=== PATIENT | female | born 1980 | race Caucasian/White ===

== ENCOUNTER 2017-12-23 14:49 | Outpatient (REF) | payer OTHER, SELFPAY ==
--- NOTE | 2017-12-23 13:45 | PAPFT_PTH ---
PATIENT: Cailin Antoine LOC: [facility] U#:[id number] AGE/SX: 37/F ROOM: RE12/23/[address]: SONAM Aiken : 1980 BED: DIS: 12/23/2017 SPEC #: [id number] RECD: 12/23/17 18:23 STATUS: LEANNE REQ #: [id number] CATHRYN: 12/23/17 13:[address]: Margarita Gant DEPT: [facility] Cytology RECD BY: Tamiko Perez ENTERED: 12/23/17 18:23 SP TYPE: PAPFT MARCELINO DR: Ulisses Haile MD Tissues: 1 - CX/ENDOCX FOR PAP SMEARS Procedures: PAP THIN PREP/[facility] Screening HPV DNA PROBE Comments: [id number]
== END 2017-12-23 15:09 ==
LOC: LBN 14:49
PROVIDERS: PCP Family Medicine; Visit Provider Nurse Practitioner Family
DX: Z12.4 Encounter for screening for malignant neoplasm of cervix (principal); Z11.51 Encounter for screening for human papillomavirus (HPV)
CPT/HCPCS: 88142; 87624

== ENCOUNTER 2018-01-18 02:16 | Outpatient (CLI) | payer OTHER, SELFPAY ==
[2018-01-18 12:37] LABS: HCT 42.2 % (36.0-46.0); HGB 13.8 g/dL (12.0-15.5); Mean Corp. HGB Concentration 32.7 g/dL (32.0-36.0); Mean Corpuscular Hemoglobin 27.7 pg (27.0-33.0); Mean Corpuscular Volume 84.6 fL (80-95); Mean Platelet Volume 9.7 fL (8.0-11.0); Platelet Count 259 x1000/uL (130-400); RBC 4.99 m/cumm (4.00-5.20); White Blood Cell Count 4.69 k/cumm (4.4-10.8)
[2018-01-18 13:20] LABS: ALT 23 U/L (12-78); AST 21 U/L (15-37); Albumin 4.1 g/dL (3.4-5.0); Alkaline Phosphatase 46 U/L (46-116); Anion Gap 10.5 mmol/L (3-11); BUN 14 mg/dL (7-18); Bilirubin, Total 0.8 mg/dL (0.2-1.0); CO2 25.5 mmol/L (21.0-32.0); CREATININE 0.94 mg/dL (0.55-1.02); Chloride 103 mmol/L (98-107); Cholesterol 194 mg/dL (50-200); Glucose 96 mg/dL (70-100); HDL Cholesterol 96 mg/dL (40-60); LDL CHOLESTEROL 84 mg/dL (<100); Potassium 4.3 mmol/L (3.5-5.1); Sodium 139 mmol/L (136-145); TSH 2.57 uIU/mL (0.358-3.74); Total Protein 6.8 g/dL (6.4-8.2); Triglyceride 71 mg/dL (30-150)
== END 2018-01-18 02:36 ==
PROVIDERS: PCP Family Medicine; Visit Provider Family Medicine
DX: R00.2 Palpitations (principal); Z13.220 Encounter for screening for lipoid disorders
CPT/HCPCS: 80053; 80061; 83721; 85027; 84443

== ENCOUNTER 2018-04-05 00:47 | Outpatient (CLI) | payer OTHER, SELFPAY ==
--- NOTE | 2018-04-05 09:11 | DI.US_ITS ---
SYMPTOMS/DIAGNOSIS: PERIUMBILICAL PAIN, R10.33, ? UMBILICAL HERNIA ABDOMINAL ULTRASOUND: Sonographic evaluation of the periumbilical region was performed. No sonographic evidence of a periumbilical or umbilical hernia is noted. If there is continued concern, a CT scan may be considered for further evaluation. IMPRESSION: Negative ultrasound. No findings to suggest an umbilical hernia sonographically.
== END 2018-04-05 01:07 ==
PROVIDERS: PCP Family Medicine; Visit Provider Physical Therapy Assistant
DX: R10.33 Periumbilical pain (principal)
CPT/HCPCS: 76857

== ENCOUNTER 2018-05-02 09:01 | Outpatient (CLI) | payer OTHER, SELFPAY ==
[2018-05-02 11:11] LABS: Abs Immature Grans 0.01 k/cumm (0.0-0.09); Absolute Basophil Count 0.12 k/cumm (0.0-0.2); Absolute Eosinophil Count 0.32 k/cumm (0.0-0.7); Absolute Lymphocyte Count 1.79 k/cumm (1.2-3.4); Absolute Neutrophil Count 2.32 k/cumm (1.2-6.7); Basophils % 2.4; Eosinophils % 6.5; HCT 45.3 % (36.0-46.0); HGB 14.7 g/dL (12.0-15.5); Immature Grans % 0.2; Lymphocytes % 36.1; Mean Corp. HGB Concentration 32.5 g/dL (32.0-36.0); Mean Corpuscular Hemoglobin 27.5 pg (27.0-33.0); Mean Corpuscular Volume 84.8 fL (80-95); Mean Platelet Volume 10.3 fL (8.0-11.0); Monocytes % 8.1; Neutrophils % 46.7; Platelet Count 288 x1000/uL (130-400); RBC 5.34 m/cumm (4.00-5.20); RBC Distribution Width 13.1 % (11.7-14.6); White Blood Cell Count 4.96 k/cumm (4.4-10.8)
[2018-05-02 11:43] LABS: ALT 20 U/L (12-78); AST 19 U/L (15-37); Albumin 4.4 g/dL (3.4-5.0); Alkaline Phosphatase 52 U/L (46-116); Anion Gap 9.3 mmol/L (3-11); BUN 15 mg/dL (7-18); Bilirubin, Total 0.8 mg/dL (0.2-1.0); CO2 30.7 mmol/L (21.0-32.0); CREATININE 0.89 mg/dL (0.55-1.02); Calcium 9.5 mg/dL (8.5-10.1); Chloride 103 mmol/L (98-107); Glucose 87 mg/dL (70-100); Potassium 4.2 mmol/L (3.5-5.1); Sodium 143 mmol/L (136-145); Total Protein 7.4 g/dL (6.4-8.2)
[2018-05-02 12:04] LABS: Bilirubin Negative (Negative); Blood Negative (Negative); Clarity Clear; Glucose Negative (Negative); Ketones Negative (Negative); Leukocyte Esterase Trace (Negative); Nitrite Negative (Negative); Urobilinogen 0.2 EU/dL (Up TO 0.2)
[2018-05-02 12:23] LABS: Bacteria Rare HPF (Negative); C & S Indicated? No/Sq. Contamination; Casts Negative LPF (Negative); Crystals Negative HPF (Negative); Epithelial Cells Moderate HPF (Negative); Mucus Trace (Negative); RBC 0-2 (0-2)
== END 2018-05-02 09:21 ==
PROVIDERS: PCP Family Medicine; Visit Provider Family Medicine
DX: Z00.00 Encounter for general adult medical examination without abnormal findings (principal); R10.9 Unspecified abdominal pain; R14.2 Eructation; R39.11 Hesitancy of micturition
CPT/HCPCS: 36415; 80053; 81003; 81015; 85025

== ENCOUNTER 2018-05-16 01:30 | Outpatient (CLI) | payer OTHER, SELFPAY ==
--- NOTE | 2018-05-16 08:30 | DI.US_ITS ---
SYMPTOM/DIAGNOSIS: ABD PAIN, BELCHING, R10.9,R14.2 ABDOMEN ULTRASOUND: The aorta is unremarkable. The inferior vena cava is somewhat prominent measuring up to approximately 3.2 cm. in diameter. The liver is normal. The gallbladder is normal. There are no stones or ductal dilatation. The pancreas is normal. The kidneys are unremarkable. The right kidney measures 11.2 and the left kidney, 10.9 cm. There is no evidence of free fluid in the abdomen. SUMMARY: The examination is within normal limits.
== END 2018-05-16 01:50 ==
PROVIDERS: PCP Family Medicine; Visit Provider Family Medicine
DX: R10.9 Unspecified abdominal pain (principal); R14.2 Eructation
CPT/HCPCS: 76700

== ENCOUNTER 2018-12-14 01:44 | Outpatient (CLI) | payer OTHER, SELFPAY ==
--- NOTE | 2018-12-14 13:45 | DI.US_ITS ---
EXAM: US PELVIS AND TRANSVAGINAL CLINICAL HISTORY: Enlarged uterus 12-14 week size, Hx Fibroid N85.2 HYPERTROPHY OF UTERUS TECHNIQUE: Ultrasound performed using standard protocol. Transabdominal and transvaginal exams wer e performed. COMPARISON: PELVIS AND TRANSVAG from 12/15/2015 FINDINGS: The uterus measures 8.9 x 5.8 x 6.4 cm. Uterus is again noted to be retroverted. There is a fibroid near the fundus measuring 2.7 cm in greatest dimension, not significantly changed from the previous e xam. The endometrial stripe measures 16 millimeters in thickness. No focal endometrial abnormality is seen. The ovaries are normal in size and appearance. There is fluid around both ovaries. No cys ts or masses are seen. There is no evidence of ovarian torsion. No hydronephrosis is seen. IMPRESSION: Mildly enlarged uterus with fundal fibroid.
== END 2018-12-14 02:04 ==
PROVIDERS: PCP Family Medicine; Visit Provider Nurse Practitioner Family
DX: N85.2 Hypertrophy of uterus (principal); N85.4 Malposition of uterus; D25.9 Leiomyoma of uterus, unspecified
CPT/HCPCS: 76830; 76856

== ENCOUNTER 2019-01-26 08:43 | Outpatient (CLI) | payer OTHER, SELFPAY ==
[2019-01-26 12:58] LABS: TSH (W/Ref FT4) 1.94 uIU/mL (0.36-3.74)
[2019-01-26 23:16] LABS: T3, Total 123 ng/dL (97-169)
== END 2019-01-26 09:03 ==
PROVIDERS: PCP Family Medicine; Visit Provider Family Medicine
DX: Z00.00 Encounter for general adult medical examination without abnormal findings (principal)
CPT/HCPCS: 36415; 84443; 84480

== ENCOUNTER 2023-05-18 10:58 | Outpatient (REF) | payer BC, SELFPAY ==
--- NOTE | 2023-05-18 10:30 | PAPFT_PTH ---
PATIENT: Cailin Antoine LOC: [facility] U#:[id number] AGE/SX: 43/F ROOM: RE05/18/[address]: Ema Damico NP : 1980 BED: DIS: 05/18/2023 SPEC #: [id number] RECD: 05/18/23 18:17 STATUS: LEANNE REQ #: [id number] CATHRYN: 05/18/23 10:[address]: Mookie JIMENES,Ema DEPT: [facility] Cytology RECD BY: Tamiko Perez ENTERED: 05/18/23 18:18 SP TYPE: PAPFT OT DR: Unknown,Unknown Tissues: 1 - CX/ENDOCX FOR PAP SMEARS Procedures: PAP THIN PREP/[facility] Screening HPV DNA PROBE Comments: [id number]
== END 2023-05-18 10:59 | disposition home or self-care (01) ==
LOC: LBN 10:58
PROVIDERS: Visit Provider Nurse Practitioner Women's Health
DX: N85.2 Hypertrophy of uterus (principal); Z01.411 Encounter for gynecological examination (general) (routine) with abnormal findings; Z12.4 Encounter for screening for malignant neoplasm of cervix; R39.15 Urgency of urination
CPT/HCPCS: 88142; 87624

== ENCOUNTER 2023-08-15 18:34 | Outpatient (REF) | payer BC, SELFPAY ==
[2023-08-15 13:01] LABS: HCT 41.2 % (36.0-46.0); HGB 13.1 g/dL (11.2-15.7); MCHC 31.8 % (32.0-36.0); MCV 76 fL (80-95); MPV 9.8 fL (8.0-11.0); Platelet Count 268 10^3/uL (130-400); RBC 5.46 10^6/uL (3.93-5.22); RDW-SD 38.3 fL; WBC 4.92 10^3/uL (4.4-10.8)
[2023-08-15 13:25] LABS: ALT 28 U/L (14-59); AST 18 U/L (15-37); Albumin 4.4 g/dL (3.4-5.0); Alkaline Phosphatase 53 U/L (46-116); Anion Gap 10.5 mmol/L (3-11); BUN 13 mg/dL (7-18); Bilirubin, Total 0.83 mg/dL (0.2-1.0); CO2 25.5 mmol/L (21.0-32.0); CREATININE 0.9 mg/dL (0.55-1.02); Calcium 9.4 mg/dL (8.5-10.1); Calculated LDL 108 mg/dL (<100); Chloride 105 mmol/L (98-107); Cholesterol 220 mg/dL (<200); Estimated GFR 81.35 (mL/min/1.73m2); Glucose 94 mg/dL (74-106); HDL Cholesterol 99 mg/dL (40-60); Potassium 4.3 mmol/L (3.5-5.1); Sodium 141 mmol/L (136-145); TSH (W/Ref FT4) 1.97 uIU/mL (0.36-3.74); Total Protein 7.4 g/dL (6.4-8.2); Triglyceride 65 mg/dL (<150)
[2023-08-16 13:18] LABS: Lab Add On Test DONE
[2023-08-16 13:33] LABS: Iron 61 ug/dL (50-170)
[2023-08-16 13:46] LABS: Ferritin 5 ng/mL (8-252)
== END 2023-08-15 18:35 | disposition home or self-care (01) ==
LOC: LBN 18:34
PROVIDERS: PCP Nurse Practitioner Family; Visit Provider Nurse Practitioner Family
DX: F41.9 Anxiety disorder, unspecified (principal); Z13.220 Encounter for screening for lipoid disorders; R71.8 Other abnormality of red blood cells
CPT/HCPCS: 80053; 80061; 85027; 82728; 83540; 84443

== ENCOUNTER 2024-03-20 11:47 | Outpatient (REF) | payer BC, SELFPAY | END 2024-03-20 11:48 | disposition home or self-care (01) | LOC: LBN 11:47 | PROVIDERS: PCP Family Medicine; Visit Provider Nurse Practitioner Women's Health | DX: N76.0 Acute vaginitis (principal); N89.8 Other specified noninflammatory disorders of vagina | CPT/HCPCS: 87480; 87510; 87660 ==

== ENCOUNTER 2024-08-15 16:28 | Outpatient (CLI) | payer BC, SELFPAY ==
[2024-08-15 15:27] LABS: Abs Immature Grans 0.01 10^3/uL (0.0-0.06); HCT 32.8 % (36.0-46.0); HGB 10.0 g/dL (11.2-15.7); Immature Grans % 0.2 %; MCH 20.8 pg (27.0-33.0); MCHC 30.5 % (32.0-36.0); MCV 68 fL (80-95); MPV 9.3 fL (8.0-11.0); Platelet Count 308 10^3/uL (130-400); RBC 4.80 10^6/uL (3.93-5.22); RDW 15.4 % (11.7-14.6); RDW-SD 37.6 fL; WBC 6.35 10^3/uL (4.4-10.8)
[2024-08-15 16:12] LABS: Microcytosis 2+
[2024-08-15 16:32] LABS: Ferritin 4 ng/mL (8-252)
== END 2024-08-15 16:29 | disposition home or self-care (01) ==
LOC: LBO 17:13
PROVIDERS: PCP Family Medicine; Visit Provider Family Medicine
DX: R71.8 Other abnormality of red blood cells (principal)
CPT/HCPCS: 36415; 82728; 85025

== ENCOUNTER 2024-09-07 00:18 | Outpatient (CLI) | payer BC, SELFPAY ==
--- NOTE | 2024-09-07 06:30 | DI.MAMMO_ITS ---
Exam(s) MAMMO SCREENING EXAM: MAMMO SCREENING CLINICAL HISTORY: screening,z12.39 TECHNIQUE: Mammograms were interpreted according to the usual protocol including computer analysis with CAD system, tomosynthesis and C-view imaging. COMPARISON: None. FINDINGS: The breasts are composed of heterogeneously dense fibroglandular densities, Breast Density category C. No suspicious masses or suspicious microcalcifications are seen. Benign calcifications are noted bilaterally. No skin thickening or abnormal axillary lymph nodes are seen. There has been no significant change from prior exams. IMPRESSION: BI-RADS Category 2 - Negative Mammogram with benign findings. Yearly screening mammography is recommended. Breast Density: Category C - The breasts are heterogeneously dense, which may obscure small masses. Breast density Category C or D implies that the patient has dense breast tissue. Dense breast tissue can make it harder to find cancer on a mammogram. Dense breast tissue is also associated with an increased risk of breast cancer. This information about the result of the mammogram report was provided to the patient to raise their awareness. Use this report when you speak with the patient about their risks for breast cancer, which includes their family history. At that time, you may recommend additional screening tests (Ultrasound or MRI) as these tests may add significant information. A negative radiographic report should not delay biopsy if a dominant or clinically suspicious mass is present. Up to ten percent of cancers are not identified on mammography. A negative report may reinforce clinical impression. Adenosis and dense breasts may obscure an underlying neoplasm. False positive reports average 6 to 10%.
== END 2024-09-07 00:38 ==
LOC: DI 00:18
PROVIDERS: PCP Family Medicine; Visit Provider Family Medicine
DX: Z12.31 Encounter for screening mammogram for malignant neoplasm of breast (principal); R92.333 Mammographic heterogeneous density, bilateral breasts
CPT/HCPCS: 77063; 77067